=== PATIENT | female | born 1970 | race Caucasian/White ===

== ENCOUNTER → 2016-10-26 | Outpatient (CLI) | payer OTHER ==
[~2016-10-26] VITALS: Ht 175.3 cm; Wt 102.5 kg
[2016-10-26 14:09] VITALS: BP 120/75
--- NOTE | 2016-10-26 15:49 | RAD ---
ULTRASOUND-GUIDED CORE RIGHT BREAST BIOPSY Clinical indications: Palpable right breast mass which measures almost 10 cm by sonography. Procedure: The procedure and possible complications including bleeding and infection were explained. The patient provided both verbal and written consent. A timeout was performed which confirmed the name of the patient and the date of and the type of the procedure and the side of the procedure. The upright quadrant right breast was prepped and draped in usual fashion were prepped. A total of 8 cc of 1% lidocaine was utilized for local anesthesia. Using sterile technique, small skin neck was made and using ultrasound guidance, a 13-gauge needle cannula was inserted into the edge of the large solid right breast mass. Subsequently, 5 separate 14-gauge core biopsy samples were obtained coaxially through the needle cannula. Each sample was placed in formalin and sent to pathology for further evaluation. The stylette was replaced and the needle cannula was removed. Hemostasis was adequate after 5 minutes of manual compression. Post procedure sonography demonstrates no significant hematoma. Sterile bandage was applied to the puncture site. The patient was given instructions to apply ice to the breast and take Tylenol for any discomfort. The patient tolerated the procedure although a common location. No biopsy marker clip was placed due to the fact that the mass is so large and none is needed. IMPRESSION: Ultrasound-guided core biopsy of the right breast mass was performed without complication. Follow-up will be through the [facility].
== END | disposition home or self-care (01) ==
LOC: EDUNIT# 13:30 → US 13:48
PROVIDERS: ATTEND Nurse Practitioner
DX: N63 Unspecified lump in breast (principal)
CPT/HCPCS: 76942